=== PATIENT | female | born 2000 | race Caucasian/White ===

== ENCOUNTER 2020-02-11 12:35 | Emergency (ER) | payer BC, MEDICAID ==
[~2020-02-11] VITALS: Ht 162.6 cm; Wt 68.5 kg
--- NOTE | 2020-02-11 13:11 | NUR ---
THIS IS A 19 YR OLD FEMALE THAT STATES A WEEK AGO SHE WAS DRYING HER HAIR AND HER DOG WAS NEAR HER. THIS RESULTED IN HER HITTING HER HEAD ON HER DOGS HEAD. PT STATES SHE HAS HAD A HEADACHE OFF AND ON SINCE WITH OCCASIONAL NAUSEA AND NO VOMITING.
[2020-02-11] MEDS ORDERED: ONDANSETRON ODT 4 MG ONE (13:18)
[2020-02-11] MEDS ORDERED: HYDROcodone/APAP 5/325 TABLET ONE (13:19)
--- NOTE | 2020-02-11 13:22 | NUR ---
PT IN CT
[2020-02-11] MEDS ORDERED: HYDROcodone/APAP 5/325 TABLET PO ONE (13:30)
[2020-02-11] MEDS ORDERED: ONDANSETRON ODT 4 MG PO ONE (13:30)
--- NOTE | 2020-02-11 13:32 | NUR ---
RETURNS FROM [place]
[2020-02-11 13:49] VITALS: BP 121/71
== END 2020-02-11 13:52 | disposition home or self-care (01) ==
LOC: ED 13:39
DX: S06.0X0A Concussion without loss of consciousness, initial encounter (principal); S00.83XA Contusion of other part of head, initial encounter; X58.XXXA Exposure to other specified factors, initial encounter; Y93.89 Activity, other specified; Y92.098 Other place in other non-institutional residence as the place of occurrence of the external cause; Y99.8 Other external cause status
CPT/HCPCS: 70450; 99284; Q0162